=== PATIENT | female | born 1995 | race Caucasian/White ===

== ENCOUNTER 2019-10-16 08:06 | Emergency (ER) | payer BC, SELFPAY ==
--- NOTE | 2019-10-16 08:11 | ED.URI ---
HPI - URI/Sore Throat General Chief Complaint: Ear Stated Complaint: Left ear pain/swollen Time Seen by Provider: 10/16/19 08:11 Source: patient and RN notes reviewed History of Present Illness HPI Narrative: Patient is a 24-year-old female who presents the urgent care with complaints of a swollen left ear. Patient states it has been painful for approximately 2 days and starting last night she was unable to hear from the ear. Patient states she is been using [id number] eardrops and peroxide as well as Tylenol. Denies of any recent swimming. Denies of any known fever. No other upper respiratory symptoms. No acute distress noted. Patient read the plan of care. Related Data Home Medications Medication Instructions Recorded Confirmed etonogestrel [Nexplanon] 1 implant SUBDERMAL ONCE 10/16/19 10/16/19 Allergies Allergy/AdvReac Type Severity Reaction Status Date / Time azithromycin Allergy Mild Hives / Verified 10/16/19 08:19 Red Face amoxicillin Allergy Unknown Hives / Verified 10/16/19 08:19 Red Face Review of Systems Review of Systems: Narrative: CONSTITUTIONAL: Denies fever, chills, or sweats. EYES: Denies visual changes, redness, or discharge. ENT: Reports of swollen and painful left ear with inability to hear CARDIOVASCULAR: Denies chest pain, palpitations, or edema. RESPIRATORY: Denies cough or dyspnea. GASTROINTESTINAL: Denies abdominal pain, nausea, vomiting, or diarrhea. GENITOURINARY: Denies dysuria or hematuria. SKIN: Denies rash or itching. MUSCULOSKELETAL: Denies back pain, joint pain, or myalgia. NEUROLOGIC: Denies headache, numbness, or weakness. All other systems reviewed are negative, except as documented in HPI. PMFSH Comments At the time of my signature, I reviewed and agree with the nursing past medical, surgical, social, and family history. There is no relevant family history pertinent to the patient complaint. Exam Narrative: Exam Narrative: GENERAL: This is a well-nourished, well-developed patient, in no apparent distress. HEAD: normocephalic, atraumatic. EYES: PERRL. Sclera clear/white. Vision is grossly intact. EARS: External ears normal, very edematous and erythemic left auditory canal with inability to visualize left TM, right auditory canal clear and without drainage, right TM normal without perforation. Hearing grossly intact. NOSE: External nose normal with no obvious nasal discharge, nares without redness, no rhinorrhea. THROAT: Mucous membranes moist NECK: Neck supple SKIN: warm, intact with no suspicious lesions or rash, good texture and turgor. NEURO: awake, alert, and oriented to person, place and time. There were no obvious focal neurologic abnormalities. EXTREMITIES: No clubbing, cyanosis, or edema. Course Vital Signs Vital signs: Vital Signs Temperature 99.7 F H 10/16/19 08:14 Pulse Rate 106 H 10/16/19 08:14 Respiratory Rate 16 10/16/19 08:14 Blood Pressure 152/75 H 10/16/19 08:14 Pulse Oximetry 100 10/16/19 08:14 Temperature 99.7 F H 10/16/19 08:14 Pulse Rate 106 H 10/16/19 08:14 Respiratory Rate 16 10/16/19 08:14 Blood Pressure 152/75 H 10/16/19 08:14 Pulse Oximetry 100 10/16/19 08:14 Reviewed-patient is informed that they may have pre-hypertension or hypertension based on a blood pressure reading in the department. I recommend the patient call the primary care provider listed on their discharge instructions or a physician of their choice this week to arrange follow-up for further evaluation of possible pre-hypertension or hypertension. MDM - URI/Sore Throat MDM Narrative Medical decision making narrative: Advised the patient to use prescription eardrops to the left ear as directed. Use a cool to warm compress to the left ear for comfort. Do not put anything in the ear with the exception of prescription eardrops. Do not use Q-tips, water, peroxide. Use ibuprofen/Tylenol as needed for pain. If you develop any increase in swellin
[2019-10-16 08:14] VITALS: BP 152/75; PULSE 106; RESP 16; TEMP 37.6; O2SAT 100
== END 2019-10-16 08:27 | disposition home or self-care (01) ==
PROVIDERS: Emergency Provider Nurse Practitioner Family; PCP Family Medicine
DX: H60.502 Unspecified acute noninfective otitis externa, left ear (principal)
CPT/HCPCS: 99213; G0463